=== PATIENT | female | born 1980 | race Hispanic/Latino ===

== ENCOUNTER 2018-02-04 19:22 | Emergency (ER) | payer OTHER ==
[2018-02-04] MEDS ORDERED: ASPIRIN PO ONE (20:05)
[2018-02-04] MEDS ORDERED: ZOFRAN ODT PO ONE (20:33)
[2018-02-04 21:28] LABS: Bacteria,Urine 1+ /HPF (Negative); Bilirubin,Urine NEG (Negative); Blood,Urine MOD (Negative); Color,Urine Yellow (Yellow); HCG Qualitative,Urine Negative (Negative); Mucus,Urine FEW /HPF; Protein,Urine <15 mg/dL mg/dL (Negative)
--- NOTE | 2018-02-04 23:25 | XRay Report ---
FINAL REPORT PROCEDURE: XR CHEST ROUTINE 2V TECHNIQUE: PA and lateral chest radiographs were obtained. CPT 91296 HISTORY: cough COMPARISON: No prior studies are available for comparison. FINDINGS: Heart: Normal size. Mediastinum/Vessels: Normal. Lungs/Pleural space: Clear. Bony thorax: No acute osseous abnormality. Other: IMPRESSION: Negative examination.
--- NOTE | 2018-02-04 23:33 | Emergency Department Report ---
Minor Respiratory - HPI Chief Complaint: Upper Respiratory Infection Stated Complaint: CP,FEVER,HT PALP.,SNEEZING,RUNNY NOSE Time Seen by Provider: 02/04/18 20:55 Duration: 4 Days Pain Location: Chest (worse with deep breaths) Severity: moderate Minor Respiratory: Yes Rhinorrhea, Yes Able to Tolerate Fluids, Yes Cough, Yes Sick Contacts (Return from [place] Friday), Yes Fever, No Sore Throat, No Ear Pain , No Hemoptysis, No Chest Pain, No Shortness of Breath Other History: This is a 37 year old female with cough, body aches, fever, and chest pain for 4 days. Patient reports return from [place] feeling sick. She thought she had a cold and started taking cold and flu medicine with mild improvement of symptoms. States she is hurting from head to toes. Her chest hurt with each deep breath. She had one episode of N/V/D yesterday when started coughing and couldn't stop. States symptoms started last with headache that she couldn't get rid of. Denies SO, sore throat, and abdominal pain. ED Review of Systems ROS: Stated complaint: CP,FEVER,HT PALP.,SNEEZING,RUNNY NOSE Other details as noted in HPI Constitutional: chills, fever ENT: congestion. denies: ear pain, throat pain Respiratory: cough. denies: orthopnea, shortness of breath, wheezing Cardiovascular: chest pain (with deep breaths). denies: palpitations, dyspnea on exertion Gastrointestinal: denies: abdominal pain, nausea, diarrhea Musculoskeletal: myalgia (generalized body aches). denies: back pain, joint swelling, arthralgia Skin: denies: rash, lesions Neurological: headache. denies: weakness, numbness, paresthesias Psychiatric: denies: anxiety, depression ED Past Medical Hx - Past Medical History Previous Medical History?: Yes - Surgical History Past Surgical History?: Yes Additional Surgical History: Pancreaectomy(distal) Spleen removed. - Social History Smoking Status: Never Smoker Substance Use Type: None - Medications Home Medications: Home Medications Medication Instructions Recorded Confirmed Last Taken Type Benzonatate 200 mg PO TID PRN #30 capsule 02/05/18 Unknown Rx Cetirizine HCl/Pseudoephedrine 1 each PO BID #30 tab.er.12h 02/05/18 Unknown Rx [Zyrtec-D Tablet] Fluticasone [Flonase] 1 spray NS QDAY #1 bottle 02/05/18 Unknown Rx Minor Respiratory Exam - Exam General: Vital signs noted. No distress. Alert and acting appropriately. HEENT: Yes Pharyngeal Erythema, Yes Moist Mucous Membranes, Yes Rhinorrhea, Yes Frontal Tenderness, No Pharyngeal Exudates, No Conjuctival Injection, No Maxillary Tenderness Ear: Neither TM Bulge, Neither TM Erythema, Neither EAC Pain, Neither EAC Discharge Neck: Yes Supple, No Adenopathy Lungs: Yes Good Air Exchange, Yes Cough, No Wheezes, No Ronchi, No Stridor, No Labored Respirations, No Retractions, No Use of Accessory Muscles, No Other Abnormal Lung Sounds Heart: Yes Regular, No Murmur Abdomen: Yes Normal Bowel Sounds, No Tenderness, No Peritoneal Signs Skin: No Rash, No Edema Neurologic: Alert and oriented, no deficits. Musculoskeletal: Unremarkable. ED Course Vital Signs 02/04/18 19:58 Temperature 99.4 F Pulse Rate 96 H Respiratory 18 Rate Blood Pressure 127/79 O2 Sat by Pulse 100 Oximetry ED Medical Decision Making - Radiology Data Radiology results: report reviewed CXR: negative examination - Medical Decision Making This is a 37 y.o. female with fever, cough, chest pain with deep breaths, and body aches for 4 days. She is taking cold and flu medicine with no improvement. Tolerating fluids and food. Given aspirin 325 mg po once and zofran 4 mg po once in ER. Obtained rapid influenza and strep, UA, HCG, and EKG. EKG SR, positive for influenza B. Treat outpatient with supportive care. Beyond 48 hours for tamiflu. Start benzonatate, flonase, and zyrtec D. Discussed plan with patient and she agreed with the plan. Discharged home in stable condition. F/U with PCP in 2-3 days. Critical care attestation.: If time is entered above; I have spent that time in minutes in the direct care of this critically ill patient, excluding procedure time. ED Disposition Clinical Impression: Influenza B Disposition: - TO HOME OR SELFCARE Is pt being admited?: No Does the pt Need Aspirin: No Condition: Stable Instructions: Influenza (ED) Additional Instructions: void large crowds to prevent transmission of virus. Increase fluid intake to prevent dehydration. Wash hands frequently. Take tylenol or ibuprofen every 4-6 hours for relief of headache, fever, and body aches. Return to school after 24 hours of being fever free. Follow up with [facility] specialist in 2-3 days if symptoms are not improving. Prescriptions: Benzonatate 200 mg PO TID PRN #30 capsule PRN Reason: Cough Cetirizine HCl/Pseudoephedrine [Zyrtec-D Tablet] 1 each PO BID #30 tab.er.12h Fluticasone [Flonase] 1 spray NS QDAY #1 bottle Referrals: CHRISTIANA VÁSQUEZ MD [Primary Care Provider] - 3-5 Days [facility] [Outside] - 3-5 Days [facility] [Outside] - 3-5 Days [facility] [Outside] - 3-5 Days Time of Disposition: 01:13 Print Language: SYRIAC
[2018-02-04 23:56] VITALS: BP 112/66
== END 2018-02-05 01:15 | disposition home or self-care (01) ==
LOC: EDBD → ED 19:22
DX: J10.1 Influenza due to other identified influenza virus with other respiratory manifestations (principal); Z88.5 Allergy status to narcotic agent; Z90.81 Acquired absence of spleen; Z90.49 Acquired absence of other specified parts of digestive tract
CPT/HCPCS: 71046; 81001; 81025; 87400; 93005; 93010; Q0162